=== PATIENT | female | born 1985 | race African-American/Black ===

== ENCOUNTER 2022-03-30 11:18 | Outpatient (REF) | payer OTHER, SELFPAY ==
[2022-03-30 14:14] LABS: Hematocrit 40.5 % (37.0-47.0); Hemoglobin 12.7 g/dl (12.0-16.0)
[2022-03-30 15:16] LABS: Alanine Aminotransferase 16 U/L (0-31); Aspartate Amino Transferase 19 U/L (5-31); Cholesterol 217 mg/dL; Glucose Fasting 90 mg/dL (60-99); HDL Cholesterol 47 mg/dL; LDL Cholesterol Calculated 148 mg/dl; Triglycerides 114 mg/dL
[2022-03-30 15:32] LABS: Vitamin D 25-OH Total 24.8 ng/mL (>30)
== END 2022-03-30 11:19 | disposition home or self-care (01) ==
LOC: HO.HMGCLDS 11:18
PROVIDERS: Visit Provider Internal Medicine
DX: Z00.01 Encounter for general adult medical examination with abnormal findings (principal); E66.9 Obesity, unspecified
CPT/HCPCS: 36415; 80061; 82306; 82947; 84450; 84460; 85014; 85018

== ENCOUNTER 2023-08-12 13:47 | Outpatient (AMB) | payer OTHER, SELFPAY ==
--- NOTE | 2023-08-12 14:19 | A.OFFPC_ITS ---
Vital Signs 08/12/23 14:23 Height 5 ft 2 in Weight 181 lb BMI 33.1 BP 106/68 Blood Pressure Location Rt brachial Position Sitting Pulse 90 Pulse Source Pulse Oximeter Pulse Oximetry (%) 99 Oxygen Delivery Method Room Air Intake Visit Reasons: annual exam Intake Note: pt here for annual PE. Pap 2-3 years ago. 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 Patient has establish care with OBGYN through practice in [place]. Patient does not know the name of the practice but will sign a release to send us the information states she is up-to-date with Pap smear. Patient is up-to-date on Tdap Will draw fasting labs today [facility] Medical History Cystocele with uterine prolapse History of hemorrhoids Obesity (BMI 30.0-34.9) History of uterine fibroid Surgical History No pertinent past surgical history Family History Father Medical history non-contributory Mother Medical history non-contributory Daughter No problems noted. Sister No problems noted. Brother No problems noted. Brother No problems noted. Brother No problems noted. Brother No problems noted. Social History Housing: House Patient Tobacco Use Status: Never used Tobacco e-Cigarette/Vaping Use: Never Used service: No Current occupational status: employed Cognitive needs: No Hearing needs: No Vision needs: No Questionnaire PHQ-9 Over the last 2 weeks, how often have you been bothered by any of the following problems? 1. Little interest or pleasure in doing things: not at all 2. Feeling down, depressed, or hopeless: not at all 3. Trouble falling or staying asleep, or sleeping too much: not at all 4. Feeling tired or having little energy: not at all 5. Poor appetite or overeating: not at all 6. Feeling bad about yourself - or that you are a failure or have let yourself or your family down: not at all 7. Trouble concentrating on things, such as reading the newspaper or watching television: not at all 8. Moving or speaking so slowly that other people could have noticed. Or the opposite - being so fidgety or restless that you have been moving around a lot more than usual: not at all 9. Thoughts that you would be better off or of hurting yourself in some way: not at all Total score: 0 Depression Screening Interpretation: Negative Depression Screening Done: Yes 46821 - PHQ-9 Billing: Yes Source: Developed by Drs. Holden Fajardo, Cristina Granados, Eriberto Macario and colleagues, with an educational mayank from [employer]. Thrive Questionnaire Date Thrive assessed: 08/12/23 I am a: Patient What is your living situation today?: I have a steady place to live Within the past 12 months, did the food you bought not last and you didn't have the money to get more?: Never true Within the past 12 months, did you worry whether your food would run out before you got money to buy more?: Never true Do you have trouble paying for medicines?: No Do you have trouble getting transportation to medical appointments?: No Do you have trouble paying your heating and electricity bill?: No Do you have trouble taking care of your child, family member or friend?: No Do you have trouble with day-to-day activities such as bathing, preparing meals, shopping, managing finances, etc.?: No Are you currently unemployed and looking for a job?: No Are you interested in more education?: No Please select the resources that you would like help with: None THRIVE Score: 0 AUDIT C Alcohol Use Questionnaire (AUDIT-C) 1. How often do you have a drink containing alcohol?: Never 3. How often do you have six or more drinks on one occasion?: Never Total Score: 0 Score Reviewed/Action Taken: Yes ELYSIA-7 AMB Questionnaire ELYSIA-7 Date ELYSIA - 7 assessed: 03/30/22 Source: Developed by Drs. Holden Fajardo, Cristina Granados, Eriberto Macario and colleagues, with an educational mayank from [employer]. Review of Systems Const All systems reviewed & are unremarkable except as noted in HPI and below Physical exam (Primary Care) Vital Signs: Last Vital Signs Pulse 90 08/12/23 14:23 BP 106/68 08/12/23 14:23 Pulse Ox 99 08/12/23 14:23 Oxygen Delivery Method Room Air 08/12/23 14:23 BMI result Body Mass Index 33.1 Tobacco/Smoking Status: Tobacco use Status Tobacco use date assessed 08/12/23 08/12/23 14:21 Patient Tobacco Use Status Never used Tobacco 08/12/23 14:21 e-Cigarette/Vaping Use Never Used 08/12/23 14:21 PHQ-9: PHQ-9 Score PHQ-9: Total score 0 08/12/23 14:32 Depression Screening Interpretation: Negative Thrive Assessment: Date of Thrive Assessment Date Thrive assessed 08/12/23 08/12/23 14:32 Const General: cooperative and no acute distress Orientation/consciousness: patient oriented x3 Limitations: no limitations HENMT Head: Yes normal to inspection Ears: TM's normal bilaterally Face and sinus: Yes normal facial exam Mouth: Normal oral and palatal mucosa present Eyes Sclerae: sclerae normal Pupils: Equal, round and reactive pupils present EOM: EOMs intact bilaterally Direct Ophthalmoscopy: normal light reflex and no photophobia Neck Neck: Yes normal visual inspection Carotids: normal carotid upstroke Resp Effort & Inspection: normal respiratory effort Auscultation: clear to auscultation bilaterally Cardio Rate: regular rate Rhythm: regular rhythm Heart sounds: S1 normal heart sound present and S2 normal heart sound present GI Inspection: Yes normal to inspection Rectal Exam - Female: deferred General: Yes no CVA tenderness Back/Spine/Pelvis Back: no CVA tenderness Skin General skin exam: no rashes or lesions noted Neuro General: patient oriented x3 Cranial nerves: Yes Equal, round and reactive pupils present Cognition (Neuro): normal cognition Motor exam (neuro): 5/5 motor strength present throughout Romberg Test: Negative Extrem General: Yes normal to inspection Psych Attitude: cooperative Thought process: Normal thought process present Thought content: Normal thought content present Insight: Good insight present (Psych) Judgement: Good judgement present (Psych) Assessment and Plan Assessment & Plan (1) Encounter for physical examination: Comment: Will draw fasting labs. Code(s): Z00.00 - Encounter for general adult medical examination without abnormal findings (2) Obesity (BMI 30.0-34.9): Comment: Patient will improve diet and exercise. Code(s): E66.9 - Obesity, unspecified (3) Cystocele with uterine prolapse: Comment: Following up with OBGYN sees [facility] urogynecology, patient may be electing for surgical correction Code(s): N81.4 - Uterovaginal prolapse, unspecified Plan: draw labs Plan follow up in 10 months. Orders: Orders Vitamin D 25-OH (D2 and D3) Today Z13.21 - Encounter for screening for nutritional disorder UA CC w/rflx Micro + Cult Today Z13.89 - Encounter for screening for other disorder TSH reflex Free T4 Today Z13.29 - Encounter for screening for other suspected endocrine disorder Lipid Panel Today Z13.220 - Encounter for screening for lipoid disorders Comprehensive Met. Panel Today Z91.89 - Other specified personal risk factors, not elsewhere classified Complete Blood Count Auto Diff Today Z13.0 - Encounter for screening for diseases of the blood and blood-forming organs and certain disorders involving the immune mechanism Vitamin B6 Today Z13.21 - Encounter for screening for nutritional disorder Vitamin B12 Today Z13.21 - Encounter for screening for nutritional disorder Coding Level of Care Code Est Pt Prev Care 18-39y(90043) Diagnoses Encounter for physical examination Z00.00 Obesity (BMI 30.0-34.9) E66.9 Cystocele with uterine prolapse N81.4 Time Spent (min) 26
[2023-08-12 14:23] VITALS: BP 106/68; PULSE 90; O2SAT 99; BMI 33.1
== END 2023-08-12 15:55 | disposition home or self-care (01) ==
LOC: HO.HMGC 13:47
PROVIDERS: PCP Internal Medicine; Visit Provider Nurse Practitioner Primary Care
DX: Z00.00 Encounter for general adult medical examination without abnormal findings (principal); E66.9 Obesity, unspecified; N81.4 Uterovaginal prolapse, unspecified; Z68.33 Body mass index [BMI] 33.0-33.9, adult
CPT/HCPCS: 99395

== ENCOUNTER 2023-08-19 08:30 | Outpatient (REF) | payer OTHER, SELFPAY ==
[2023-08-19 10:15] LABS: MANUAL DIFF FLAG NO
[2023-08-19 10:35] LABS: Appearance Urine Clear; Color Urine Yellow; Glucose Urine UA Negative (Negative); Leukocyte Esterase Urine Negative (Negative); Nitrite Urine Negative (Negative); Specific Gravity - Urine 1.015 (1.005-1.025); Urine Blood Negative (Negative); Urine Ketones Negative (Negative); Urine Protein Negative (Neg-Trace)
[2023-08-19 10:44] LABS: Basophils Percent Auto 0.4 % (0-2); Eosinophils Absolute Auto 0.1 X10*3/uL (0.0-0.4); Eosinophils Percent Auto 1.8 % (0-4); Hematocrit 38.5 % (37.0-47.0); Imm Gran Abs Auto 0.01 X10*3/uL (0.00-0.03); Imm Gran Pct Auto 0.2 % (0.0-0.4); Lymphocytes Absolute Auto 2.3 X10*3/uL (1.2-4.9); Lymphocytes Percent Auto 40.6 % (20-40); Mean Corpuscular HGB Conc 31.2 g/dl (31.0-35.0); Mean Corpuscular Hemoglobin 26.4 pg (27.0-33.0); Mean Corpuscular Volume 84.6 fL (80.0-98.0); Mean Platelet Volume 10.2 fL (9.4-12.3); Monocytes Absolute Auto 0.3 X10*3/uL (0.1-1.2); Monocytes Percent Auto 5.8 % (2-11); Neutrophils Absolute Auto 2.9 x10*3/uL (2.0-8.3); Neutrophils Percent Auto 51.2 % (45-73); Platelet Count 349 X10*3/uL (160-400); Red Blood Count 4.55 X10*6/uL (4.20-5.50); Red Cell Distribution Width 13.5 % (11.0-16.0); White Blood Count 5.7 X10*3/uL (4.8-10.8)
[2023-08-19 11:03] LABS: Alanine Aminotransferase 15 U/L (0-31); Albumin Level 3.9 g/dL (3.5-5.0); Alkaline Phosphatase 82 U/L (39-117); Anion Gap 12 (12-20); Aspartate Amino Transferase 15 U/L (5-31); Bilirubin Total 0.2 mg/dL (0.0-1.0); Blood Urea Nitrogen 8 mg/dL (9-16); Calcium 9.1 mg/dL (8.4-10.2); Carbon Dioxide 25 mmol/L (22-29); Chloride 107 mmol/L (96-108); Cholesterol 174 mg/dL (<200); Estimated Glomerular Filt Rate > 60; Glucose Random 90 mg/dL (60-115); HDL Cholesterol 38 mg/dL (>40); LDL Cholesterol Calculated 114 mg/dL (<100); Sodium 140 mmol/L (135-145); Total Protein 7.4 g/dL (6.5-8.0); Triglycerides 114 mg/dL (<150)
[2023-08-19 11:20] LABS: TSH reflex Free T4 0.77 uIU/mL (0.32-4.0)
[2023-08-19 11:32] LABS: Vitamin B12 553 pg/mL (200-900)
[2023-08-25 12:18] LABS: Vitamin D 25-OH, D2 <4 ng/mL; Vitamin D 25-OH, D3 23 ng/mL; Vitamin D 25-OH, Total 23 ng/mL (30-100)
[2023-08-26 12:54] LABS: Vitamin B6 10.3 ng/mL (2.1-21.7)
== END 2023-08-19 08:31 | disposition home or self-care (01) ==
LOC: HO.HMGCLDS 08:30
PROVIDERS: PCP Internal Medicine; Visit Provider Nurse Practitioner Primary Care
DX: Z13.89 Encounter for screening for other disorder (principal); Z13.29 Encounter for screening for other suspected endocrine disorder; Z13.220 Encounter for screening for lipoid disorders; Z91.89 Other specified personal risk factors, not elsewhere classified; Z13.0 Encounter for screening for diseases of the blood and blood-forming organs and certain disorders involving the immune mechanism; Z13.21 Encounter for screening for nutritional disorder
CPT/HCPCS: 36415; 80053; 80061; 81003; 82306; 82607; 84207; 84443; 85025

== ENCOUNTER 2024-08-11 09:05 | Outpatient (REF) | payer OTHER, SELFPAY ==
[2024-08-11 12:16] LABS: Cholesterol 187 mg/dL (<200); Glucose Fasting 93 mg/dL (60-99); HDL Cholesterol 40 mg/dL (>40); LDL Cholesterol Calculated 118 mg/dL (<100); Triglycerides 145 mg/dL (<150)
[2024-08-11 12:34] LABS: Vitamin D 25-OH Total 45.2 ng/mL (>30)
== END 2024-08-11 09:06 | disposition home or self-care (01) ==
LOC: HO.HMGCLDS 09:05
PROVIDERS: PCP Internal Medicine; Visit Provider Internal Medicine
DX: E66.9 Obesity, unspecified (principal); Z13.220 Encounter for screening for lipoid disorders; E55.9 Vitamin D deficiency, unspecified; Z13.1 Encounter for screening for diabetes mellitus
CPT/HCPCS: 36415; 80061; 82306; 82947

== ENCOUNTER 2024-08-13 10:19 | Outpatient (AMB) | payer OTHER, SELFPAY ==
--- NOTE | 2024-08-13 10:49 | MHC.PC.OV ---
Vital Signs 08/13/24 10:54 Weight 191 lb 2 oz BP 128/88 Blood Pressure Location Rt brachial Position Sitting Respiration 18 Pulse 99 Pulse Source Pulse Oximeter Temp 97.7 F Temp Source Oral Pulse Oximetry (%) 97 Oxygen Delivery Method Room Air Intake Visit Reasons: annual exam Intake Note: Chanda is here for annual PE. Her last pap smear was 12/16/23- LMP was 08/08/24. Allergies No Known Allergies Allergy (Verified 08/13/24 11:26) Medication List - Last Reconciled 08/13/24 by Xiomy Garner MD norethindrone (contraceptive) 0.35 mg PO DAILY Tobacco use date assessed: 08/13/24 Dental Screening Dental Screen Date: 08/13/24 Did you have a dental visit in the last 12 months?: Yes Did you have a dental problem in the last 6 months where you did not have access to dental care?: No Was dental information given to patient?: Patient has dentist HPI annual exam HPI Details 38-year-old lady here today for her physical exam. She is 3 months with her 3rd child, no she is still currently taking ferrous all supplements and is now on control using the pill . She had her last Pap smear done at goes positive HPV. Already has an appointment to see them back again for repeat Pap in December this year Up-to-date with her vaccines but does not want to get a COVID booster. Has been feeling well but frustrated that she is unable to lose her belly fat . Has been exercising and cooking her own meals. [facility] Medical History Cystocele with uterine prolapse History of hemorrhoids Obesity (BMI 30.0-34.9) History of uterine fibroid Surgical History No pertinent past surgical history Family History Father Medical history non-contributory Mother Medical history non-contributory Daughter No problems noted. Sister No problems noted. Brother No problems noted. Brother No problems noted. Brother No problems noted. Brother No problems noted. Social History Housing: House Patient Tobacco Use Status: Never used Tobacco e-Cigarette/Vaping Use: Never Used service: No Current occupational status: employed Cognitive needs: No Hearing needs: No Vision needs: No Female Reproductive History Menstrual Date of last pap smear: 12/14/23 Other: Goes to [facility] for her routine Pap smear and pelvic exam and followed for her uterine fibroid Questionnaire PHQ-9 Over the last 2 weeks, how often have you been bothered by any of the following problems? 1. Little interest or pleasure in doing things: not at all 2. Feeling down, depressed, or hopeless: not at all 3. Trouble falling or staying asleep, or sleeping too much: not at all 4. Feeling tired or having little energy: not at all 5. Poor appetite or overeating: not at all 6. Feeling bad about yourself - or that you are a failure or have let yourself or your family down: not at all 7. Trouble concentrating on things, such as reading the newspaper or watching television: not at all 8. Moving or speaking so slowly that other people could have noticed. Or the opposite - being so fidgety or restless that you have been moving around a lot more than usual: not at all 9. Thoughts that you would be better off or of hurting yourself in some way: not at all Total score: 0 Depression Screening Interpretation: Negative Depression Screening Done: Yes 68406 - PHQ-9 Billing: Yes Source: Developed by Drs. Holden Fajardo, Cristina Granados, Eriberto Macario and colleagues, with an educational mayank from [employer]. Thrive Questionnaire Date Thrive assessed: 08/13/24 I am a: Patient What is your living situation today?: I have a steady place to live Within the past 12 months, did the food you bought not last and you didn't have the money to get more?: Never true Within the past 12 months, did you worry whether your food would run out before you got money to buy more?: Never true Do you have trouble paying for medicines?: No Do you have trouble getting transportation to medical appointments?: No Do you have trouble paying your heating and electricity bill?: No Do you have trouble taking care of your child, family member or friend?: No Do you have trouble with day-to-day activities such as bathing, preparing meals, shopping, managing finances, etc.?: No Are you currently unemployed and looking for a job?: No Are you interested in more education?: No Please select the resources that you would like help with: None THRIVE Score: 0 AUDIT C Alcohol Use Questionnaire (AUDIT-C) 1. How often do you have a drink containing alcohol?: Never 3. How often do you have six or more drinks on one occasion?: Never Total Score: 0 Score Reviewed/Action Taken: Yes ELYSIA-7 AMB Questionnaire ELYSIA-7 Date ELYSIA - 7 assessed: 03/30/22 Source: Developed by Drs. Holden Fajardo, Cristina Granados, Eriberto Macario and colleagues, with an educational mayank from [employer]. Review of Systems Const Denies body aches, Denies fatigue, Denies fever(s), Denies headache(s), Denies weakness and Denies weight loss Eyes Denies change in vision ENT Denies dizziness, Denies headache(s), Denies nasal congestion, Denies nasal discharge and Denies sore throat Card Denies chest pain, Denies lightheadedness, Denies palpitations and Denies dyspnea Resp Denies chest congestion, Denies cough, Denies dyspnea and Denies wheezing GI Denies abdominal pain, Denies change in bowel habits and Denies heartburn Denies hematuria, Denies urinary frequency, Denies dysuria and Denies urinary urgency Musc Reports no additional complaints Skin/Breast Denies breast pain, Denies breast mass, Denies lesions and Denies rash Neuro Denies dizziness, Denies headache(s) and Denies weakness Psych Reports no additional complaints Endo Denies fatigue, Denies polydipsia, Denies polyuria and Denies palpitations Miguel/Lymph Denies easy bruising Aller/Immun Denies seasonal rhinorrhea and Denies wheezing Physical exam (Primary Care) Vital Signs: Last Vital Signs Temp 97.7 F 08/13/24 10:54 Pulse 99 08/13/24 10:54 Resp 18 08/13/24 10:54 BP 128/88 08/13/24 10:54 Pulse Ox 79 L 08/13/24 10:54 Oxygen Delivery Method Room Air 08/13/24 10:54 Tobacco/Smoking Status: Tobacco use Status Tobacco use date assessed 08/13/24 08/13/24 10:51 Patient Tobacco Use Status Never used Tobacco 08/13/24 10:51 e-Cigarette/Vaping Use Never Used 08/13/24 10:51 Depression Screening Interpretation: Negative Thrive Assessment: Date of Thrive Assessment Date Thrive assessed 08/13/24 08/13/24 11:08 Const General: cooperative and no acute distress Orientation/consciousness: patient oriented x3 Limitations: no limitations HENMT Head: Yes normal to inspection Ears: TM's normal bilaterally Face and sinus: Yes normal facial exam Mouth: Normal oral and palatal mucosa present Eyes Sclerae: sclerae normal Pupils: Equal, round and reactive pupils present EOM: EOMs intact bilaterally Direct Ophthalmoscopy: normal light reflex and no photophobia Neck Neck: Yes normal visual inspection Carotids: normal carotid upstroke Chest Breast/axilla palpation: normal palpation of the breasts Resp Effort & Inspection: normal respiratory effort Auscultation: clear to auscultation bilaterally Cardio Rate: regular rate Rhythm: regular rhythm Heart sounds: S1 normal heart sound present and S2 normal heart sound present GI Inspection: Yes normal to inspection Rectal Exam - Female: deferred General: Yes no CVA tenderness Back/Spine/Pelvis Back: no CVA tenderness Skin General skin exam: no rashes or lesions noted and other (Healed scar) Neuro General: patient oriented x3 Cranial nerves: Yes Equal, round and reactive pupils present Cognition (Neuro): normal cognition Motor exam (neuro): 5/5 motor strength present throughout Romberg Test: Negative Extrem General: Yes normal to inspection Psych Attitude: cooperative Thought process: Normal thought process present Thought content: Normal thought content present Results Reviewed Results Reviewed: Name: Chanda Bull Age/Sex: 38/F : 1985 Unit#: [id number] Attend Dr: Xiomy Garner MD Re08/11/24 Status: DEP [facility]: SPEC : [id number] DESTINY: 08/11/24 STATUS: COMP REQ : [id number] RECD: 08/11/24-[address]: Xiomy Garner MD COMP: 08/11/241234 ENTERED: 08/11/[address] [facility] DR: ORDERED: Glu Fasting, Lipid Panel, Vitamin D 25-OH Test Result Flag Reference FBS 93 60-99 mg/dL Triglyceride 145 <150 mg/dL Desirable Triglyceride: less than 150 mg/dL Borderline High Triglyceride 150-199 mg/dL High Triglyceride: 200-499 mg/dL Very High Triglyceride: greater than or equal to 5OO mg/dL Cholesterol 187 <200 mg/dL Desirable Cholesterol: less than 200 mg/dL Borderline High Cholesterol: 200-239 mg/dL High Cholesterol: greater than 239 mg/dL LDL Calculated 118 H <100 mg/dL Desirable LDL: less than 100 mg/dL Near Optimal/Above Optimal LDL: 110-129 mg/dL Borderline High LDL: 130-159 mg/dL High LDL: 160-189 mg/dL Very High LDL: greater than or equal to 190 mg/dL HDL 40 L >40 mg/dL Desirable HDL: greater than 40 mg/dL Note: This HDL assay may give artificially low results in patients with liver disease. Vitamin D 25-OH 45.2 >30 ng/mL Health Based Reference Values* < 20 ng/mL Deficient 20-30 ng/mL Insufficient > 30 ng/mL Sufficient Coding Level of Care Code Est Pt Prev Care 18-39y(08472) Diagnoses Annual visit for general adult medical examination with abnormal findings Z00.01 Obesity (BMI 30.0-34.9) E66.9 Additional Codes PHQ-9 - 30373 - PHQ-9 Billing: Yes ([id number]) Assessment & Plan Assessment & Plan (1) Annual visit for general adult medical examination with abnormal findings: Code(s): Z00.01 - Encounter for general adult medical examination with abnormal findings Plan: Reviewed recent fasting lab results with patient with normal fasting glucose and lipids. Recommended dental visit every 6 months and regular eye exams, at least every 2 years. Take adequate calcium in diet and vitamin-D 3 at 2000 IU per cap once a day, in addition to weight-bearing exercises to help maintain good muscle tone and weight control. Instructed to do self-breast exam, and recommended to get yearly mammogram, starting at age 40. Up-to-date with her vaccines, does not want to get COVID booster (2) Obesity (BMI 30.0-34.9): Comment: Patient will improve diet and exercise. Code(s): E66.9 - Obesity, unspecified Category: Medical Plan: Discussed need to increase activity and wt reduction recommended through adherence to healthy eating habits and regular exercise Eat Mediterranean diet, limit foods high in fat, sugar, and calories, eat slowly, pay attention to portion sizes, plan your meals ahead of time, start regular physical activity 150 minutes of moderate intensity exercise or 90 minutes/week of vigorous exercise
[2024-08-13 10:54] VITALS: BP 128/88; PULSE 99; RESP 18; TEMP 36.5; O2SAT 97
== END 2024-08-13 11:33 | disposition home or self-care (01) ==
LOC: HO.HMCC 10:20
PROVIDERS: PCP Internal Medicine; Visit Provider Internal Medicine
DX: Z00.01 Encounter for general adult medical examination with abnormal findings (principal); E66.9 Obesity, unspecified

== ENCOUNTER → 2024-08-13 10:19 | Outpatient (BNVA) | payer OTHER, SELFPAY | PROVIDERS: PCP Internal Medicine; Visit Provider Internal Medicine | DX: Z00.01 Encounter for general adult medical examination with abnormal findings (principal); E66.9 Obesity, unspecified | CPT/HCPCS: 96127 ==

== ENCOUNTER 2024-12-13 11:30 | Outpatient (REF) | payer OTHER, SELFPAY ==
[2024-12-13 15:31] LABS: Bacterial Vaginosis PCR NEGATIVE (Negative); Candida Group PCR DETECTED (Not Detect); Candida glab krusei PCR NOT DETECTED (Not Detect); Trichomonas vaginalis PCR NOT DETECTED (Not Detect)
[2024-12-13 16:03] LABS: CT PCR NOT DETECTED (Not Detect.); NG PCR NOT DETECTED (Not Detect.)
== END 2024-12-13 11:31 | disposition home or self-care (01) ==
LOC: HO.LAB 11:30
PROVIDERS: PCP Internal Medicine; Visit Provider Nurse Practitioner Family
DX: N76.0 Acute vaginitis (principal); Z20.2 Contact with and (suspected) exposure to infections with a predominantly sexual mode of transmission; Z79.899 Other long term (current) drug therapy
CPT/HCPCS: 81515; 87491; 87591

== ENCOUNTER 2024-12-13 11:30 | Outpatient (AMB) | payer OTHER, SELFPAY ==
[2024-12-13 11:37] VITALS: BP 140/82; PULSE 84; TEMP 36.8; O2SAT 100; BMI 35.8
--- NOTE | 2024-12-13 11:37 | AM.OFFWIN_ITS ---
Intake Vital Signs 12/13/24 11:37 Height 5 ft 2 in Weight 196 lb BMI 35.8 BP 140/82 H Blood Pressure Location Rt brachial Position Sitting Pulse 84 Pulse Source Pulse Oximeter Temp 98.2 F Temp Source Oral Pulse Oximetry (%) 100 Oxygen Delivery Method Room Air Intake Visit Reasons: EP Itching?? 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 Pt was treated with Topical Fungal medica tions with minimal relief. Reports vaginal itching, labia and inside vagina. Reports white discharge and burning when urine touches skin. She had a Baby via back in 04/2024. She is sexually active with - on Norethindrone. Pt does have Bladder/Uterine prolapse - she is planning to have surgical interventions. [facility] Medical History (Updated 12/13/24 @ 12:04 by Eileen Sy NP) Vaginitis and vulvovaginitis Cystocele with uterine prolapse History of hemorrhoids Obesity (BMI 30.0-34.9) History of uterine fibroid Surgical History No pertinent past surgical history Family History Father Medical history non-contributory Mother Medical history non-contributory Daughter No problems noted. Sister No problems noted. Brother No problems noted. Brother No problems noted. Brother No problems noted. Brother No problems noted. Social History Housing: House Patient Tobacco Use Status: Never used Tobacco e-Cigarette/Vaping Use: Never Used service: No Current occupational status: employed Cognitive needs: No Hearing needs: No Vision needs: No Review of Systems Const All systems reviewed & are unremarkable except as noted in HPI and below Physical Exam Vital Signs: Last Vital Signs Temp 98.2 F 12/13/24 11:37 Pulse 84 12/13/24 11:37 BP 140/82 H 12/13/24 11:37 Pulse Ox 100 12/13/24 11:37 Oxygen Delivery Method Room Air 12/13/24 11:37 BMI result Body Mass Index 35.8 Const General: no acute distress Nutritional Appearance: obese Orientation/consciousness: patient oriented x3 GI Inspection: Yes obesity Palpation (GI): Soft to palpation, not firm, nontender and no guarding Auscultation: normal bowel sounds External Female Exam: erythema and externally tender Speculum Exam - Vagina: erythematous, tenderness bilaterally and other (presence of Bladder and Uterus prolapse. ) Speculum Exam - Cervix: Cervical os open and nontender Bimanual exam- vagina & uterus: No Cervical tenderness present and no cervical motion tenderness OB/external & speculum: Cervical os open Neuro General: patient oriented x3, gait normal and moves all extremities Psych Speech and movement: Normal speech and movement present Assessment & Plan Assessment & Plan (1) Vaginitis and vulvovaginitis: Code(s): N76.0 - Acute vaginitis Plan: Ordered Vaginal Panel Exam consisted with Hilda - Ordered Fluconazole 150 mg Orders: Orders Bacterial Vaginosis Panel Today N76.0 - Acute vaginitis CT NG by PCR Vag/Cerv Today N76.0 - Acute vaginitis Medications: New fluconazole TAKE ONE TABLET NOW, MAY REPEAT SECOND DOSE IN 72 HOURS (3 DAYS) 2 tabs 3RF N76.0 - Acute vaginitis Coding Level of Care Code Est Pt Level 4 (56359) Diagnoses Vaginitis and vulvovaginitis N76.0 Time Spent (min) 20
== END 2024-12-13 12:20 | disposition home or self-care (01) ==
PROVIDERS: PCP Internal Medicine; Visit Provider Nurse Practitioner Family
DX: N76.0 Acute vaginitis (principal)